=== PATIENT | female | born 1970 | race Hispanic/Latino ===

== ENCOUNTER 2022-03-06 12:19 | Emergency (ER) | payer SELFPAY ==
[2022-03-06 14:00] LABS: Urine Blood 2+ (Negative); Urine Glucose Negative (Negative); Urine Protein Trace (Negative); Urine Specific Gravity >=1.030 (1.005-1.030); Urine pH 5.5 (5.0-7.0)
[2022-03-06 14:33] LABS: Urine Bacteria <20 /HPF (<20); Urine Mucus 2+ /HPF (NONE SEEN); Urine RBC <5 /HPF (NONE SEEN)
[2022-03-06] MEDS ORDERED: LIDOCAINE 4% PATCH ONE (14:52)
[2022-03-06] MEDS ORDERED: KETOROLAC 30 MG/ML INJ ONE ×2 (14:52→15:01)
--- NOTE | 2022-03-06 15:30 | RAD REPORT ---
EXAM DESCRIPTION: RAD - Lumbar Spine 3 Views - 03/06/2022 3:14 pm CLINICAL HISTORY: LOWER BACK PAIN Radiculopathy COMPARISON: No comparisons FINDINGS: Vertebral body heights appear maintained. No compression fracture noted. Mild lower lumbar spondylosis is present. No spondylolysis or spondylolisthesis. Minimal levoscoliosis. IMPRESSION: Mild lower lumbar spondylosis
--- NOTE | 2022-03-06 15:46 | ER ---
Nurse's Notes [facility] Name: Gisela Kathleen Age: 51 yrs Sex: Female : 1970 Arrival Date: 03/06/2022 Time: 12:22 Bed 10 Private MD: Diagnosis: Low back pain Presentation: 03/06 12:27 Chief complaint: Patient states: she started having back pain in the middle of her back ap3 yesterday. patient denies any trauma to the area or lifting anything heavy. Coronavirus screen: At this time, the client does not indicate any symptoms associated with coronavirus-19. Ebola Screen: No symptoms or risks identified at this time. Initial Sepsis Screen: Does the patient meet any 2 criteria? No. Patient's initial sepsis screen is negative. Does the patient have a suspected source of infection? No. Patient's initial sepsis screen is negative. Risk Assessment: Do you want to hurt yourself or someone else? Patient reports no desire to harm self or others. Onset of symptoms was March 05, 2022. 12:27 Method Of Arrival: Ambulatory ap3 12:27 Acuity: EDIE 4 ap3 Triage Assessment: 12:29 General: Appears uncomfortable, Behavior is calm, cooperative. Pain: Complains of pain ap3 in low back area Pain currently is 6 out of 10 on a pain scale. Neuro: Level of Consciousness is awake, alert, obeys commands, Oriented to person, place, time, situation. Cardiovascular: Patient's skin is warm and dry. Respiratory: Airway is patent Respiratory effort is even, unlabored. Musculoskeletal: Range of motion: intact in all extremities. 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 - Social history:: Smoking status: Patient denies any tobacco usage or history of. Screenin:29 Abuse screen: Denies threats or abuse. Nutritional screening: No deficits noted. ap3 Tuberculosis screening: No symptoms or risk factors identified. Assessment: 16:01 Reassessment: Patient appears in no apparent distress at this time. Patient and/or hb family updated on plan of care and expected duration. Pain level reassessed. Patient is alert, oriented x 3, equal unlabored respirations, skin warm/dry/pink. Vital Signs: 12:27 BP 138 / 90; Pulse 71; Resp 17; Temp 98.4; Pulse Ox 99% ; Weight 89.81 kg; Height 5 ft. ap3 4 in. (162.56 cm); Pain 6/10; 15:04 BP 141 / 81; Pulse 64; Resp 16; Pulse Ox 100% on R/A; Pain 10/10; ld1 12:27 Body Mass Index 33.99 (89.81 kg, 162.56 cm) ap3 ED Course: 12:22 Patient arrived in ED. rg4 12:28 Triage completed. ap3 12:30 Arm band placed on right wrist. ap3 13:09 Jose Juares PA is PHCP. cp 13:09 Michel Allan MD is Attending Physician. cp 14:32 Rochelle Moreno, RN is Primary Nurse. ld1 15:16 XRAY Lumbar Spine (3 Views) In Process Unspecified. EDMS 16:01 No provider procedures requiring assistance completed. Patient did not have IV access hb during this emergency room visit. Administered Medications: 15:03 Drug: Ketorolac 60 mg Route: IM; Site: left deltoid; ld1 15:04 Drug: Lidoderm Patch 5 % (700 mg/patch) 1 patches Route: Topical; Site: affected area; ld1 Outcome: 15:45 Discharge ordered by MD. cp 16:01 Discharged to home ambulatory. hb 16:01 Condition: stable 16:01 Discharge instructions given to patient, Instructed on discharge instructions, follow up and referral plans. medication usage, Demonstrated understanding of instructions, follow-up care, medications, Prescriptions given X 3. 16:02 Patient left the ED. hb Signatures: Dispatcher [employer] EDMS Jose Juares PA PA cp Diandra Mckeon RN RN Raiza Guardado rg4 Savanna Caro RN RN ap3 Rochelle Moreno, ANDREW RN ld1
--- NOTE | 2022-03-06 15:46 | EDPHYS ---
Physician Documentation [facility] Name: Gisela Kathleen Age: 51 yrs Sex: Female : 1970 Arrival Date: 03/06/2022 Time: 12:22 Bed 10 Private MD: ED Physician Michel Allan HPI: 03/06 13:30 This 51 yrs old Female presents to ER via Ambulatory with complaints of Back cp Pain. 13:30 The patient presents with pain that is acute, with no known mechanism of injury. The cp symptoms are located in the low back. Onset: The symptoms/episode began/occurred yesterday. 13:30 The pain does not radiate. Associated signs and symptoms: Pertinent negatives: cp abdominal pain, constipation, dysuria, fever, hematuria, incontinence, numbness, weakness, history of IV drug use, trauma. 13:30 The problem was sustained from unknown cause. Modifying factors: the patient symptoms cp are aggravated by bending, walking. Severity of symptoms: in the emergency department the symptoms are unchanged, despite home interventions. RECAPPER: 12:29 LMP N/A - Post-menopause ap3 Historical: - Allergies: 12:28 No Known Allergies; ap3 - PMHx: 12:28 None; ap3 - Immunization history:: Client reports receiving the 2nd dose of the Covid vaccine. - Social history:: Smoking status: Patient denies any tobacco usage or history of. ROS: 13:33 Back: Positive for pain at rest, pain with movement, of the low back area. cp 13:33 Constitutional: Negative for body aches, chills, fever, poor PO intake. cp 13:33 Eyes: Negative for injury, pain, redness, and discharge. cp 13:33 Neck: Negative for pain with movement, pain at rest, stiffness. 13:33 Cardiovascular: Negative for chest pain, palpitations. 13:33 Respiratory: Negative for cough, shortness of breath, wheezing. 13:33 Abdomen/GI: Negative for abdominal pain, vomiting, diarrhea, constipation, bowel incontinence. 13:33 : Negative for urinary symptoms, flank pain, bladder incontinence. 13:33 Neuro: Negative for dizziness, numbness, tingling, weakness. 13:33 All other systems are negative. Exam: 13:40 Constitutional: The patient appears in no acute distress, alert, awake, non-toxic, well cp developed, well nourished, uncomfortable. 13:40 Head/Face: Normocephalic, atraumatic. cp 13:40 Eyes: Periorbital structures: appear normal, Conjunctiva: normal, no exudate, no injection, Sclera: no appreciated abnormality, Lids and lashes: appear normal, bilaterally. 13:40 ENT: External ear(s): are unremarkable, Nose: is normal, Mouth: Lips: moist, Oral mucosa: pink and intact, moist, Posterior pharynx: Airway: no evidence of obstruction, patent. 13:40 Neck: ROM/movement: is normal, is supple, without pain, no range of motions limitations. 13:40 Chest/axilla: Inspection: normal. 13:40 Cardiovascular: Rate: normal, Rhythm: regular. 13:40 Respiratory: the patient does not display signs of respiratory distress, Respirations: normal, no use of accessory muscles, no retractions, labored breathing, is not present, Breath sounds: are clear throughout. 13:40 Abdomen/GI: Inspection: abdomen appears normal, Palpation: abdomen is soft and non-tender, in all quadrants. 13:40 Back: pain, that is moderate, of the low back area, ROM is painful, with all movement, vertebral tenderness, is not appreciated, Straight leg raises: of both lower extremities does not illicit pain. 13:40 Skin: cellulitis, is not appreciated, no rash present. 13:40 Neuro: Motor: moves all fours, strength is normal, Sensation: is normal, Gait: is steady, at a normal pace, without difficulty, Deep tendon reflexes are 2+ (normal) in the right patellar, right Achilles, left patellar and left Achilles. Vital Signs: 12:27 BP 138 / 90; Pulse 71; Resp 17; Temp 98.4; Pulse Ox 99% ; Weight 89.81 kg; Height 5 ft. ap3 4 in. (162.56 cm); Pain 6/10; 15:04 BP 141 / 81; Pulse 64; Resp 16; Pulse Ox 100% on R/A; Pain 10/10; ld1 12:27 Body Mass Index 33.99 (89.81 kg, 162.56 cm) ap3 MDM: 14:35 Patient medically screened. cp 15:45 Data reviewed: vital signs, nurses notes, lab test result(s), radiologic studies, plain cp films. 15:45 Differential diagnosis: Fracture Pyelonephritis ruptured disc, spinal injury, cp Ureterolithiasis vertebral fracture. Test interpretation: by ED physician or midlevel provider: plain radiologic studies. Counseling: I had a detailed discussion with the patient and/or guardian regarding: the historical points, exam findings, and any diagnostic results supporting the discharge/admit diagnosis, lab results, radiology results, the need for outpatient follow up, a family practitioner, to return to the emergency department if symptoms worsen or persist or if there are any questions or concerns that arise at home. Response to treatment: the patient's symptoms have markedly improved after treatment, and as a result, I will discharge patient. 03/06 13:52 Order name: Urine Microscopic Only; Complete Time: 14:34 03/06 14:34 Interpretation: Normal except: UWBC 5-10; SQEPI 5-10. 03/06 14:01 Order name: Urine Dipstick-Ancillary; Complete Time: 14:34 [facility] 03/06 14:34 Interpretation: Normal except: UBLD 2+; UPROT Trace; U NIT Positive. 03/06 14:36 Order name: Urine Culture [facility] 03/06 14:44 Order name: XRAY Lumbar Spine (3 Views); Complete Time: 16:01 03/06 16:01 Interpretation: Report reviewed. 03/06 13:51 Order name: Urine Dipstick-Ancillary (obtain specimen); Complete Time: 13:54 ss Administered Medications: 15:03 Drug: Ketorolac 60 mg Route: IM; Site: left deltoid; ld1 15:04 Drug: Lidoderm Patch 5 % (700 mg/patch) 1 patches Route: Topical; Site: affected area; ld1 Disposition: 18:51 Co-signature as Attending Physician, Michel Allan MD. rn Disposition Summary: 03/06/22 15:45 Discharge Ordered Location: Home cp Problem: new cp Symptoms: have improved cp Condition: Stable cp Diagnosis - Low back pain cp Followup: cp - With: Private Physician - When: 2 - 3 days - Reason: Recheck today's complaints Discharge Instructions: - Discharge Summary Sheet cp - Acute Back Pain, Adult cp - Heat Therapy cp - Back Exercises cp - Form - Excuse from Work, School, or Physical Activity cp Forms: - Medication Reconciliation Form cp - Thank You Letter cp - Antibiotic Education cp - Prescription Opioid Use cp Prescriptions: - Lidoderm 5 % Topical adhesive patch,medicated - apply 1 patch by TOPICAL route once daily; 15 patch; Refills: 0, Product cp Selection Permitted - Cyclobenzaprine 10 mg Oral Tablet - take 1 tablet by ORAL route every 8 hours As needed; 20 tablet; Refills: 0, cp Product Selection Permitted - Diclofenac Sodium 75 mg Oral Tablet Sustained Release - take 1 tablet by ORAL route 2 times per day; 30 tablet; Refills: 0, Product cp Selection Permitted Signatures: Dispatcher [employer] EDMD Michel Allan MD MD rn Smirch, Shelby RN RN ss Jose Juares PA PA Savanna Vera RN RN ap3 Rochelle Moreno RN RN ld1
[2022-03-06 16:59] VITALS: TEMP 98.4
[2022-03-06 17:01] VITALS: BP 141/81; O2SAT 100
== END 2022-03-06 16:02 | disposition home or self-care (01) ==
LOC: ER 12:19
DX: M54.50 Low back pain, unspecified (principal)
CPT/HCPCS: 72100; 81003; 81015; 87086; 87088; 96372; 99283; J2001

== ENCOUNTER 2022-07-26 08:45 | Emergency (ER) | payer SELFPAY ==
[2022-07-26] MEDS ORDERED: ONDANSETRON 4 MG/2 ML VIAL ONE (09:33)
[2022-07-26] MEDS ORDERED: NA CHLORIDE 0.9% 1,000 ML ONE (09:33)
--- NOTE | 2022-07-26 09:38 | RAD REPORT ---
EXAM DESCRIPTION: CT - Head Brain Wo Cont - 07/26/2022 9:21 am CLINICAL HISTORY: Dizziness COMPARISON: None. TECHNIQUE: Computed axial tomography of the head was obtained. IV contrast was not requested. All CT scans are performed using dose optimization technique as appropriate and may include automated exposure control or mA/KV adjustment according to patient size. FINDINGS: An intracranial bleed is not seen . The ventricles are normal in caliber. No significant hypodense areas within the brain visualized No extra-axial fluid collection is noted. Fluid within the sinuses/ mastoids is not seen. IMPRESSION: No acute intracranial abnormality is seen. If patient's symptoms persist MRI of the bra in would be recommended.
[2022-07-26 09:45] LABS: Urine Blood 2+ (Negative); Urine Glucose Negative (Negative); Urine Protein Negative (Negative); Urine Specific Gravity 1.025 (1.005-1.030)
[2022-07-26 10:10] LABS: Urine Bacteria <20 /HPF (<20); Urine Mucus Slight /HPF (None Seen)
[2022-07-26 10:14] LABS: Urine Specific Gravity/Preg 1.025 (1.005-1.030)
[2022-07-26 10:53] LABS: Absolute Lymphocytes (CBC) 2.5 K/uL (0.7-4.9); Hematocrit 42.5 % (36.0-45.0); Lymphocytes % 32.4 % (15.3-44.8); MCV 85.1 fL (80-100); MPV 8.6 fL (7.6-11.3); RBC Red Blood Cell Count 4.99 M/uL (3.86-4.86)
[2022-07-26 11:08] LABS: Albumin 3.9 g/dL (3.4-5.0); Bilirubin Direct 0.2 mg/dL (0-0.2); Bilirubin Total 0.9 mg/dL (0.2-1.0); Magnesium 2.2 mg/dL (1.8-2.4); Potassium 3.9 mmol/L (3.5-5.1); Protein, Total 8.1 g/dL (6.4-8.2); Troponin High Sensitivity 4.5 pg/mL (<58.9)
[2022-07-26] MEDS ORDERED: NA CHLORIDE 0.9% 100 ML IV ONE (11:38)
[2022-07-26] MEDS ORDERED: CEFTRIAXONE 1000 MG/VIAL ONE (11:38)
--- NOTE | 2022-07-26 11:51 | RAD REPORT ---
EXAM DESCRIPTION: CT - Abdomen Pelvis W Contrast - 07/26/2022 11:33 am CLINICAL HISTORY: Abdominal pain COMPARISON: none. TECHNIQUE: Computed axial tomography of the abdomen pelvis was obtained. 100 cc Isovue-300 was admin istered intravenously. Oral contrast was not requested which limits evaluation of bowel and appendix All CT scans are performed using dose optimization technique as appropriate and may include automated exposure control or mA/KV adjustment according to patient size. FINDINGS: Mild fatty liver. Cholelithiasis. The spleen, pancreas, adrenals and kidneys are unremarkable No adnexal mass Normal appendix. No evidence of diverticulitis. IMPRESSION: Cholelithiasis
--- NOTE | 2022-07-26 12:00 | RAD REPORT ---
EXAM DESCRIPTION: Michael Single View07/26/2022 10:11 am CLINICAL HISTORY: Chest pain COMPARISON: none FINDINGS: The lungs appear clear of acute infiltrate. The heart is normal size IMPRESSION: No acute abnormalities displayed
--- NOTE | 2022-07-26 12:25 | ER ---
Nurse's Notes [facility] Name: Gisela Kathleen Age: 51 yrs Sex: Female : 05/26/1971 Arrival Date: 07/26/2022 Time: 08:46 Bed 4 Private MD: Diagnosis: UTI/ Urinary tract infection, site not specified Presentation: 07/26 08:55 Chief complaint: Patient states: dizziness and nausea X 2 days. also has left rib pian iw and leftupper back pain X 1 week, and not eating well, and urinary frequency. Coronavirus screen: At this time, the client does not indicate any symptoms associated with coronavirus-19. Ebola Screen: Patient negative for fever greater than or equal to 101.5 degrees Fahrenheit, and additional compatible Ebola Virus Disease symptoms Patient denies exposure to infectious person. Patient denies travel to an Ebola-affected area in the 21 days before illness onset. No symptoms or risks identified at this time. Initial Sepsis Screen: Does the patient meet any 2 criteria? No. Patient's initial sepsis screen is negative. Does the patient have a suspected source of infection? No. Patient's initial sepsis screen is negative. Risk Assessment: Do you want to hurt yourself or someone else? Patient reports no desire to harm self or others. Onset of symptoms was July 23, 2022. 08:55 Method Of Arrival: Ambulatory iw 08:55 Acuity: EDIE 3 iw Triage Assessment: 09:00 General: Appears distressed, uncomfortable, obese, Behavior is cooperative, appropriate bp for age, anxious. Pain: Complains of pain in pelvis. EENT: No deficits noted. Neuro: Reports dizziness. Cardiovascular: No deficits noted. Respiratory: No deficits noted. GI: Reports nausea, vomiting. :. Derm: No deficits noted. Musculoskeletal: No deficits noted. 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 - Social history:: Smoking status: Patient denies any tobacco usage or history of. Screenin:00 Abuse screen: Denies threats or abuse. Denies injuries from another. Nutritional bp screening: No deficits noted. Tuberculosis screening: No symptoms or risk factors identified. Fall Risk None identified. Assessment: 09:00 General: SEE TRIAGE NOTE. bp 11:00 Reassessment: Patient appears in no apparent distress at this time. Patient states bp symptoms have improved. 12:30 Reassessment: DISPO PENDING Patient states feeling better. Patient states symptoms have bp improved. GI: Abdomen is non-distended. 13:31 Reassessment: PT DC HOME AMBULATORY WITH FAMILY. bp Vital Signs: 08:55 BP 174 / 103; Pulse 66; Resp 16; Temp 97.2; Pulse Ox 100% on R/A; Pain 6/10; iw 10:00 BP 178 / 99; Pulse 69; Resp 13; Pulse Ox 100% ; bp 11:00 BP 165 / 98; Pulse 64; Resp 12; Pulse Ox 100% ; bp 12:00 BP 158 / 82; Pulse 66; Resp 12; Pulse Ox 100% ; bp 13:00 BP 139 / 83; Pulse 67; Resp 11; Pulse Ox 100% ; bp ED Course: 08:46 Patient arrived in ED. as 08:57 Triage completed. iw 08:58 Leidy Duarte FNP is PHCP. jh7 08:58 Jose Neri MD is Attending Physician. jh7 08:58 Arm band placed on. iw 09:00 Patient has correct armband on for positive identification. Bed in low position. Call bp light in reach. Side rails up X2. 09:16 EKG done, by ED staff, reviewed by Leidy AMEZQUITA. jl7 09:17 Mitch Haney, RN is Primary Nurse. bp 09:23 CT Head Brain wo Cont In Process Unspecified. EDMS 10:09 Inserted saline lock: 22 gauge in right wrist, using aseptic technique. bp 10:13 XRAY Chest (1 view) In Process Unspecified. EDMS 11:35 CT Abd/Pelvis - IV Contrast Only In Process Unspecified. EDMS 13:31 No provider procedures requiring assistance completed. IV discontinued, intact, bp bleeding controlled, No redness/swelling at site. Pressure dressing applied. Administered Medications: 10:09 Drug: NS 0.9% 1000 ml Route: IV; Rate: 1 bolus; Site: right wrist; bp 10:09 Drug: Zofran (Ondansetron) 4 mg Route: IVP; Site: right wrist; bp 10:45 Drug: Rocephin (cefTRIAXone) 1 grams Route: IV; Rate: 1 calculated rate; Site: right bp wrist; Medication: 13:31 VIS not applicable for this client. bp Outcome: 12:24 Discharge ordered by MD. liang 13:31 Discharged to home ambulatory, with family. bp 13:31 Condition: stable 13:31 Discharge instructions given to patient, Instructed on discharge instructions, follow up and referral plans. medication usage, Demonstrated understanding of instructions, follow-up care, medications, Prescriptions given X 2. 13:32 Patient left the ED. bp Addendum: 07/29/2022 07:17 Addendum: Culture Results: Positive urine culture. No further action required. Bacteria e b sensitive to prescribed antibiotic. Signatures: Dispatcher [employer] EDMS Terra Matos Irene, RN RN Edgar Santiago RN RN jl7 Mitch Haney RN RN bp Botello, Elizabeth eb Hadash, Jennifer, FNP FNP 7 Corrections: (The following items were deleted from the chart) 07/26 08:58 08:55 Pulse 66bpm; Resp 16bpm; Pulse Ox 100% RA; Temp 97.2F; Pain 6/10; iw iw 12:42 12:38 General: SEE TRIAGE NOTE. bp bp
--- NOTE | 2022-07-26 12:25 | EDPHYS ---
Physician Documentation [facility] Name: Gisela Kathleen Age: 51 yrs Sex: Female : 05/26/1971 Arrival Date: 07/26/2022 Time: 08:46 Bed 4 Private MD: ED Physician Jose Neri HPI: 07/26 09:00 This 51 yrs old Female presents to ER via Ambulatory with complaints of jh7 Dizziness, Nausea/Vomiting, Abdominal Pain, Weakness, Decreased Appetite. 09:00 The patient presents with feeling faint. Onset: The symptoms/episode began/occurred 2 jh7 day(s) ago. Associated signs and symptoms: Pertinent positives: abdominal pain, nausea, vomiting, urinary frequency, low back pain. Patient reports nausea, vomiting, left-sided abdominal pain/rib pain, weakness, and dizziness for the past 2 days. Also reports worsening urinary frequency.. TEST ENG: 08:58 LMP 06/2021 iw Historical: - Allergies: 08:57 No Known Allergies; iw - Home Meds: 08:57 None [Active]; iw - PMHx: 08:57 None; iw - PSHx: 08:57 section; iw - Immunization history:: Adult Immunizations up to date. - Social history:: Smoking status: Patient denies any tobacco usage or history of. ROS: 09:00 Constitutional: Negative for fever, chills, and weight loss, Eyes: Negative for injury, jh7 pain, redness, and discharge, ENT: Negative for injury, pain, and discharge, Neck: Negative for injury, pain, and swelling, Cardiovascular: Negative for chest pain, palpitations, and edema, Respiratory: Negative for shortness of breath, cough, wheezing, and pleuritic chest pain, MS/Extremity: Negative for injury and deformity, Skin: Negative for injury, rash, and discoloration. 09:00 Abdomen/GI: Positive for abdominal pain, nausea and vomiting, Negative for diarrhea, constipation. 09:00 Back: Positive for pain at rest. 09:00 Neuro: Positive for dizziness, Negative for gait disturbance, headache, loss of consciousness, syncope, visual changes. 09:00 All other systems are negative. Exam: 09:00 Constitutional: This is a well developed, well nourished patient who is awake, alert, jh7 and in no acute distress. Head/Face: Normocephalic, atraumatic. Eyes: Pupils equal round and reactive to light, extra-ocular motions intact. Lids and lashes normal. Conjunctiva and sclera are non-icteric and not injected. Cornea within normal limits. Periorbital areas with no swelling, redness, or edema. Neck: Trachea midline, no thyromegaly or masses palpated, and no cervical lymphadenopathy. Supple, full range of motion without nuchal rigidity, or vertebral point tenderness. No Meningismus. Cardiovascular: Regular rate and rhythm with a normal S1 and S2. No gallops, murmurs, or rubs. Normal PMI, no JVD. No pulse deficits. Respiratory: Lungs have equal breath sounds bilaterally, clear to auscultation and percussion. No rales, rhonchi or wheezes noted. No increased work of breathing, no retractions or nasal flaring. Back: No spinal tenderness. No costovertebral tenderness. Full range of motion. Skin: Warm, dry with normal turgor. Normal color with no rashes, no lesions, and no evidence of cellulitis. MS/ Extremity: Pulses equal, no cyanosis. Neurovascular intact. Full, normal range of motion. Neuro: Awake and alert, GCS 15, oriented to person, place, time, and situation. Cranial nerves II-XII grossly intact. Motor strength 5/5 in all extremities. Sensory grossly intact. Cerebellar exam normal. Normal gait. 09:00 ECG was reviewed by the Attending Physician. 09:00 Abdomen/GI: Inspection: abdomen appears normal, Bowel sounds: normal, Palpation: soft, mild abdominal tenderness, in the posterior aspect of left lateral abdomen, left upper quadrant and left lower quadrant. Vital Signs: 08:55 BP 174 / 103; Pulse 66; Resp 16; Temp 97.2; Pulse Ox 100% on R/A; Pain 6/10; iw 10:00 BP 178 / 99; Pulse 69; Resp 13; Pulse Ox 100% ; bp 11:00 BP 165 / 98; Pulse 64; Resp 12; Pulse Ox 100% ; bp 12:00 BP 158 / 82; Pulse 66; Resp 12; Pulse Ox 100% ; bp 13:00 BP 139 / 83; Pulse 67; Resp 11; Pulse Ox 100% ; bp MDM: 08:58 Patient medically screened. medical center clinic 12:30 Differential diagnosis: UTI, pyelonephritis, CVA. Data reviewed: vital signs, nurses medical center clinic notes, lab test result(s), EKG, radiologic studies, CT scan, plain films. Data interpreted: Pulse oximetry: is 100 %. Interpretation: normal. Counseling: I had a detailed discussion with the patient and/or guardian regarding: the historical points, exam findings, and any diagnostic results supporting the discharge/admit diagnosis, to return to the emergency department if symptoms worsen or persist or if there are any questions or concerns that arise at home. 07/26 09:04 Order name: Basic Metabolic Panel; Complete Time: 11:14 [facility] 07/26 09:04 Order name: CBC with Diff; Complete Time: 11:14 [facility] 07/26 09:04 Order name: D-Dimer; Complete Time: 11:14 [facility] 07/26 09:04 Order name: LFT's; Complete Time: 11:14 [facility] 07/26 09:04 Order name: Magnesium; Complete Time: 11:14 [facility] 07/26 09:04 Order name: Troponin HS; Complete Time: 11:14 [facility] 07/26 09:04 Order name: XRAY Chest (1 view); Complete Time: 12:21 [facility] 07/26 09:04 Order name: CT Head Brain wo Cont; Complete Time: 09:40 [facility] 07/26 09:04 Order name: Urine Microscopic Only; Complete Time: 10:17 [facility] 07/26 09:44 Order name: Urine Culture [facility] 07/26 09:45 Order name: Urine Dipstick-Ancillary; Complete Time: 09:51 [facility] 07/26 09:51 Order name: CT Abd/Pelvis - IV Contrast Only; Complete Time: 12:21 [facility] 07/26 09:59 Order name: Urine --Ancillary (enter results); Complete Time: 10:17 [facility] 07/26 09:04 Order name: EKG; Complete Time: 09:05 [facility] 07/26 09:04 Order name: Cardiac monitoring; Complete Time: 09:16 [facility] 07/26 09:04 Order name: EKG - Nurse/Tech; Complete Time: 09:16 [facility] 07/26 09:04 Order name: IV Saline Lock; Complete Time: 10:09 [facility] 07/26 09:04 Order name: Labs collected and sent; Complete Time: 11:28 [facility] 07/26 09:04 Order name: O2 Per Protocol; Complete Time: :16 [facility] 07/26 09:04 Order name: O2 Sat Monitoring; Complete Time: : [facility] 07/26 09:04 Order name: Urine Dipstick-Ancillary (obtain specimen); Complete Time: 10:09 [facility] EC:00 Rate is 64 beats/min. Rhythm is regular. QRS [place] is Normal. PA interval is normal at [facility] center clinic 168 msec. QRS interval is normal at 80 msec. No Q waves. No ST changes noted. Clinical impression: NSR w/ Non-specific ST/T Changes. Administered Medications: 10:09 Drug: NS 0.9% 1000 ml Route: IV; Rate: 1 bolus; Site: right wrist; bp 10:09 Drug: Zofran (Ondansetron) 4 mg Route: IVP; Site: right wrist; bp 10:45 Drug: Rocephin (cefTRIAXone) 1 grams Route: IV; Rate: 1 calculated rate; Site: right bp wrist; Disposition Summary: 07/26/22 12:24 Discharge Ordered Location: Home [facility] Problem: new [facility] Symptoms: have improved [facility] center [facility] Condition: Stable [facility] Diagnosis - UTI/ Urinary tract infection, site not specified [facility] Followup: medical center clinic - With: Private Physician - When: 2 - 3 days - Reason: Recheck today's complaints Discharge Instructions: - Discharge Summary Sheet [facility] center [facility] - Dysuria [facility] - Urinary Tract Infection, Adult [facility] Forms: - Medication Reconciliation Form [facility] - Thank You Letter [facility] - Antibiotic Education [facility] Prescriptions: - Pyridium 200 mg Oral Tablet - take 1 tablet by ORAL route every 8 hours for 3 days; 9 tablet; Refills: 0, [facility] center [facility] Product Selection Permitted - Macrobid 100 mg Oral Capsule - take 1 capsule by ORAL route every 12 hours for 7 days; 14 capsule; Refills: 0, [facility] center clinic Product Selection Permitted Addendum: 07/29/2022 07:56 Co-signature as Attending Physician, Jose Neri MD I agree with the assessment and c bermudez plan of care. Signatures: Dispatcher [employer] Jose Marmolejo MD MD cha Williams, Irene, RN Mitch Ibrahim RN RN bp Leidy Duarte, KENNEL MANAGER [place] [id number]
[2022-07-26 13:36] VITALS: TEMP 97.2; O2SAT 100
[2022-07-26 13:41] VITALS: BP 139/83
--- NOTE | 2022-07-27 07:54 | EKG ---
Test Date: 2022-07-26 Test Time: 09:13:34 [employer] [employer] Director: MAKAYLA MEASUREMENT RESULTS: Intervals: Rate: 64 TX: 168 QRSD: 80 QT: 398 QTc: 410 [place]: P: 56 TX: 168 QRS: 64 T: 59 INTERPRETIVE STATEMENTS: Normal sinus rhythm Septal infarct, age undetermined Abnormal ECG No previous ECG available for comparison Electronically Signed On 07-27-22 07:49:17 RETAIL ASSISTANT MANAGER by Bon [place]
== END 2022-07-26 13:32 | disposition home or self-care (01) ==
LOC: ER 08:45
DX: N39.0 Urinary tract infection, site not specified (principal)
CPT/HCPCS: 36415; 70450; 71045; 74177; 80048; 80076; 81003; 81015; 81025; 83735; 84484; 85025; 85379; 87077; 87086; 87088; 87186; 93005; 96374; 96375; 99284; J2405; J7030; Q9967